=== PATIENT | male | born 1970 | race Caucasian/White ===

== ENCOUNTER → 2016-05-12 | Day surgery (SDC) | payer BC ==
[~2016-05-12] MED LIST: ACETAMINOPHEN/HYDROcodone 325 MG/5 MG TAB ONE; APREPITANT 40 MG CAP ONE; BUPIVACAINE/EPINEPHRINE 0.25% PF 30 ML VIAL ONE; BUPIVACAINE/EPINEPHRINE 0.5% PF 30 ML VIAL ONE; LACTATED RINGER'S 1000 ML INJ 1,000 ML ONE; MIDAZOLAM HCL 2 MG/2 ML VIAL ONE; ONDANSETRON HCL 4 MG/2 ML VIAL IV PUSH ONE; PROPOFOL 200 MG/20 ML AMP IV ONE; SCOPOLAMINE 1.5 MG PATCH ONE; ceFAZolin 2 GM PREMIX 50 ML ONE
--- NOTE | 2016-05-15 05:51 | MP ---
cc: CALVIN PUENTE M.D. DATE OF SURGERY 05/12/2016 PREOPERATIVE DIAGNOSIS Left knee lateral meniscus tear. 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 PROCEDURE Left knee arthroscopic partial lateral meniscectomy and gentle chondroplasty weightbearing portion lateral femoral condyle. ANESTHETIC General. SURGEON Cavlin Puente MD CHEF TEACHER SURGEON Lupillo PRADO ESTIMATED BLOOD LOSS Minimal. DRAINS None. SPECIMEN None. COMPLICATIONS None known. INDICATION Karan Dorantes is a 46-year-old male with persistent left knee pain and tear on MRI of the posterior horn lateral meniscus who now presents for arthroscopic surgery. He is having lateral based crepitation as well. It should be noted that the medical billing assistant Lupillo Villasenor is an advanced registered nurse practitioner. His skill set was medically necessary for the performance of the operation. He assisted with helping to manipulate the limb, holding the arthroscope and allowing the undersigned to use two hands to facilitate the operation. His skill set was medically necessary for the performance of the operation. PROCEDURE The patient was brought into the operating room. He was placed under general anesthetic. The left lower extremity was draped and prepped in the usual sterile fashion. IV antibiotics were given. Time-out was completed. Inferolateral portal was made after Marcaine injected, the arthroscope introduced and the knee insufflated with saline. The patellofemoral joint looked healthy. The medial compartment showed some minimal fraying of the medial meniscus where he had prior arthroscopic surgery photographs were taken here. Notch showed normal-appearing ACL. Going into the figure-four configuration, we saw some delaminated cartilage on the weightbearing portion of the lateral femoral condyle and this would make sense for the crepitation for which he was having. With changing variable angles of knee flexion while putting opening stress on the lateral compartment, we brought the arthroscope in to gently perform a chondroplasty on the lateral femoral condyle and then identified the lateral meniscus tear and then proceeded to arthroscopic partial lateral meniscectomy using a combination of basket forceps and arthroscopic shaver. We switched over a switching stick so we could gain access to the posterior horn of the lateral meniscus and perform partial lateral meniscectomy. We then went back to the condyle and performed gentle smoothing and contouring. Follow-up arthroscopic photograph show the final result. Repeat diagnostic arthroscopy with the scope back in the lateral position revealed no loose bodies. The arthroscopic equipment was removed, Marcaine injected, Steri-Strips applied, sterile dressing applied, Terrance wrap applied. The patient was awoken and returned to the recovery room in stable condition. MD PARAMJIT Hernandez/SSB /1:50 PM /5:43 AM
== END | disposition home or self-care (01) ==
LOC: ESDC 08:42
PROVIDERS: ATTEND Orthopaedic Surgery Sports Medicine
DX: S83.282A Other tear of lateral meniscus, current injury, left knee, initial encounter (principal)
CPT/HCPCS: 01400; 29881; J0690; J2250; J2405; J7120; J8501